=== PATIENT | female | born 1960 | race Caucasian/White ===

== ENCOUNTER 2023-12-28 20:44 | Emergency (ER) | payer SELFPAY ==
[~2023-12-28] VITALS: Ht 170.2 cm; Wt 70.0 kg
[2023-12-28 20:51] VITALS: TEMP 97.8; O2SAT 97
[2023-12-28] MEDS: ACETAMINOPHEN 325MG TABLET PO ONE (21:45)
[2023-12-28] MEDS ORDERED: TOPUD PO (22:31)
[2023-12-29 00:10] VITALS: BP 149/77; PULSE 80; RESP 17
== END 2023-12-29 00:12 | disposition home or self-care (01) ==
LOC: ER 21:19
DX: M54.2 Cervicalgia (principal); R11.0 Nausea
CPT/HCPCS: 71045; 93005; 99284